=== PATIENT | female | born 1955 | race Caucasian/White ===

== ENCOUNTER 2018-05-02 12:02 | Emergency (ER) | payer MEDICARE, OTHER ==
[2018-05-02 15:00] VITALS: BP 137/91
--- NOTE | 2018-05-02 15:54 | ED ---
Lower Extremity - HPI Summary HPI Summary: Pt presents w/ Lt hip/buttock pain radiating into Lt lateral calf x 3 days. Worse w/ sitting for a period of time or "sitting just right". Had some "creaking" in hip area a few times with movement when she's had pain. Denies new numbness, tingling, weakness, edema, skin discoloration, burning or heat sensation into this extremity. 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 She is concerned she could have a clot in the Lt leg today - wanted to make sure she didn't have a DVT. HAs not tried anything yet for pain but reports she has extra strength tylenol in her purse if needed. Denies h/o back/hip issues, arthritis, etc and no acute injury such as fall, overuse, etc. Has been following w/ PCP's at [facility] in [facility] however she just moved here and will lose her insurance in May - looking to transition her health care provider here to [place]. She also reports a CVA in Mar 2018 (chart indicates TIA) - no reported residual effects. She has a f/u scheduled w/ neurology in Jul 2018 in [facility]. Currently denies (as does daughter) weakness, facial droop, slurring, balance issues, confusion, new onset VALDEZ. She also admits to taking plavix and ASA since CVA/TIA . - History of Current Complaint Chief Complaint: EDExtremityLower Stated Complaint: LEFT LEG PAIN Time Seen by Provider: 05/02/18 12:38 Hx Obtained From: Patient, Family/Electronic Gluer - daughter Pain Intensity: 10 - Allergies/Home Medications Allergies/Adverse Reactions: Allergies Allergy/AdvReac Type Severity Reaction Status Date / Time No Known Allergies Allergy Verified 05/02/18 12:14 PMH/Surg Hx/FS Hx/Imm Hx Previously Healthy: Yes Endocrine/Hematology History: Reports: Hx Anticoagulant Therapy - ASA, plavix, Hx Diabetes - on oral meds only Cardiovascular History: Reports: Hx Coronary Artery Disease - stents, Hx Deep Vein Thrombosis, Hx Hypercholesterolemia, Hx Hypertension, Hx Peripheral Vascular Disease Denies: Hx Atrial Fibrillation, Hx Pacemaker/ICD Musculoskeletal History: Denies: Hx Arthritis, Hx Back Problems, Hx Orthopedic Injury Sensory History: Reports: Hx Contacts or Glasses Denies: Hx Legally Blind, Hx Deafness, Hx Hearing Aid Opthamlomology History: Reports: Hx Contacts or Glasses Denies: Hx Legally Blind Neurological History: Reports: Hx Peripheral Neuropathy - Rt LE s/p clot w/ reperfusion, Hx Transient Ischemic Attacks (TIA) Psychiatric History: Reports: Hx Anxiety, Hx Depression Denies: Hx Panic Disorder - Surgical History Surgery Procedure, Year, and Place: ,HERNIA, APPENDIX, TONSILS, GALLBLADDER, OVARY REMOVED, HYSTERECTOMY, HEART STENTS, STENTS IN AORTA/ILIAC ARTERY 2003 &2005 (OP REPORTS FROM [facility] SCANNED INTO PT MEDICAL RECORDS) Infectious Disease History: No Infectious Disease History: Denies: Traveled Outside the [place] in Last 30 Days - Family History Known Family History: Positive: Cardiac Disease, Diabetes - Social History Lives: With Family - daughter Alcohol Use: None Hx Substance Use: No Substance Use Type: Reports: None Hx Tobacco Use: No Smoking Status (MU): Heavy Every Day Tobacco Smoker Review of Systems Constitutional: Negative Negative: Fever, Chills, Fatigue Eyes: Negative Negative: Photophobia, Blurred Vision, Diplopia ENT: Negative Cardiovascular: Negative Negative: Palpitations, Chest Pain Respiratory: Negative Negative: Shortness Of Breath Gastrointestinal: Negative Negative: Abdominal Pain Genitourinary: Negative, Other - denies pelvic pain Musculoskeletal: Other - Lt hip and lateral calf pain Skin: Negative Positive: Paresthesia - baseline. Negative: Weakness, Numbness, Syncope, Slurred Speech Psychological: Normal All Other Systems Reviewed And Are Negative: Yes Physical Exam Triage Information Reviewed: Yes Vital Signs On Initial Exam: Initial Vitals Temp Pulse Resp BP Pulse Ox 98.1 F 69 16 135/100 96 05/02/18 12:09 05/02/18 12:09 05/02/18 12:09 05/02/18 12:09 05/02/18 12:09 Vital Signs Reviewed: Yes Appearance: Positive: Well-Appearing - pt sitting comfortably in recliner chair with daughter and granddaughter, doing word puzzles in an activity book, conversing, No Pain Distress, Well-Nourished Skin: Positive: Warm, Skin Color Reflects Adequate Perfusion, Dry - no erythema , no ecchymosis, no lesions over skin Head/Face: Positive: Normal Head/Face Inspection Eyes: Positive: Normal, EOMI, JEREMY, Conjunctiva Clear ENT: Positive: Normal ENT inspection, Hearing grossly normal, Pharynx normal - mucosa moist Neck: Positive: Supple, Nontender Respiratory/Lung Sounds: Positive: Clear to Auscultation, Breath Sounds Present Cardiovascular: Positive: Normal, RRR, Pulses are Symmetrical in both Upper and Lower Extremities, S1, S2. Negative: Murmur, Rub, Leg Edema Left - Lt calf TTP (mild), Leg Edema Right Abdomen Description: Positive: Nontender, Soft. Negative: Distended, Pulsatile Mass Bowel Sounds: Positive: Present Musculoskeletal: Positive: Strength/ROM Intact, Pain @ - mild Lt lateral hip/ gluteal region TTP; lumbar spine, paraspinal mm and SI joints are NTTP, Other - pt can single leg stand on Lt LE w/o pain unless she "moves just right" - this is not observed during exam Neurological: Positive: Alert, Oriented to Person Place, Time, CN Intact II-III , Reflexes Intact. Negative: Sensory/Motor Intact - motor intact - baseline neuropathy of Rt plantar surface per pt Psychiatric: Positive: Normal - pleasant, polite, cooperative Diagnostics - Vital Signs Vital Signs Temp Pulse Resp BP Pulse Ox 05/02/18 14:59 97.7 F 63 18 137/91 96 05/02/18 12:09 98.1 F 69 16 135/100 96 - Laboratory Lab Statement: Any lab studies that have been ordered have been reviewed, and results considered in the medical decision making process. Lower Extremity Course/Dx - Course Course Of Treatment: US: no DVT. Discussed ordering XR's of lumbar spine and Lt hip to assess for other causes of discomfort such as arthritis w/ radiculopathy but pt declines. She is advised she may take her extra strength tylenol for pain and close f/u w/ PCP or Care Clinic here at [facility]. Also reviewed danger s/sx of when to return to ED. Pt and daughter agree w/ plan and will continue to monitor for any return of TIA/CVA sx as she's only about 1 month out from previous episode. She reports she has plenty of her medications and does not need refills at this time. NOTE: BP improved upon recheck - Diagnoses Provider Diagnoses: Left hip pain Discharge - Sign-Out/Discharge Documenting (check all that apply): Patient Departure - Discharge Plan Condition: Stable Disposition: HOME Patient Education Materials: Hip Pain (ED), Leg Pain (ED) Referrals: Sukh Zapata DO [Primary Care Provider] - [facility] [Outside] Additional Instructions: The definitive cause of your pain was not identified today however we ruled out clots in your lower extremity. If your symptoms persist or worsen you may return to the emergency department. Otherwise it is important that you follow up either with your PCP or [facility] to further investigate the source of this pain. In the meantime, you may take acetaminophen extra strength every 6 hours along with warm compresses alternating with ice (use whichever feels better). Stay well-hydrated and avoid activities that exacerbate pain. It is important that you call today to schedule your appointment within the week. If you are unable to see PCP before insurance ends, make sure to attain all of your medical records to take to [facility] - they may help refer you locally as well to a new PCP as well as neurology. - Billing Disposition and Condition Condition: STABLE Disposition: Home
== END 2018-05-02 16:11 | disposition home or self-care (01) ==
LOC: ED 12:02
DX: M79.605 Pain in left leg (principal); F17.210 Nicotine dependence, cigarettes, uncomplicated; I25.10 Atherosclerotic heart disease of native coronary artery without angina pectoris; Z95.5 Presence of coronary angioplasty implant and graft; Z86.718 Personal history of other venous thrombosis and embolism
CPT/HCPCS: 99282